=== PATIENT | male | born 1995 | race Caucasian/White ===

== ENCOUNTER 2019-06-07 18:34 | Emergency (ER) | payer OTHER ==
[~2019-06-07] VITALS: Ht 182.8 cm; Wt 72.6 kg
[~2019-06-07 18:34] MED LIST: NKHM
[2019-06-07 18:35] VITALS: BP 121/65
[2019-06-07] MEDS ORDERED: AMOXICILLIN500 M2 PO (18:46)
[2019-06-07] MEDS ORDERED: NAPROSYN500 MG PO (18:46)
== END 2019-06-07 19:03 | disposition home or self-care (01) ==
LOC: ED 18:34
DX: K02.9 Dental caries, unspecified (principal)

== ENCOUNTER 2023-11-18 15:23 | Emergency (ER) | payer SELFPAY ==
[~2023-11-18] VITALS: Ht 180.3 cm; Wt 72.6 kg
[~2023-11-18 15:23] MED LIST changes: +AMOXICILLIN500 M2 PO; +NAPROSYN500 MG PO
[2023-11-18 15:32] VITALS: BP 147/120
[2023-11-18] MEDS ORDERED: ACETAMINOPHEN 325 MG TAB PO ONE (15:40)
== END 2023-11-18 16:41 | disposition home or self-care (01) ==
LOC: ED 15:23
DX: J06.9 Acute upper respiratory infection, unspecified (principal); Z20.822 Contact with and (suspected) exposure to COVID-19; J45.909 Unspecified asthma, uncomplicated; Z98.890 Other specified postprocedural states